=== PATIENT | female | born 1935 | race Caucasian/White ===

== ENCOUNTER → 2016-09-30 | Outpatient (CLI) | payer MEDICARE ==
[2016-02-27 08:00] VITALS: BP 114/61
[~2016-09-30] MED LIST: ASPI-482 PO; CELE200C PO; DULO60CA6 PO; EZET10TA18 PO; GABA-586 PO; ISOS30TA PO; LISI2.5T PO; METO-269 PO; NITR0.4T SL; PANT40GR PO; RANO500T2 PO; TEMA30CA PO; TRAM50TA PO
--- NOTE | 2016-09-30 16:17 | KCIC ---
Bilateral two-view tibia-fibula, bilateral 3 view ankle, bilateral 3 view foot HISTORY: Acute bilateral foot and ankle pain. Closed displaced fracture of left foot metatarsal with delayed healing. COMPARISON: None Two-view right tibia-fibula Bone demineralization. No evidence of acute or displaced fracture. The knee is barely visualized but there are some degenerative changes. Benign-appearing soft tissue calcifications. Left tibia fibula Partially visualized left knee replacement. Bony mineralization. No evidence of acute fracture. Benign-appearing soft tissue calcifications are identified. Three-view right ankle No evidence of acute fracture or dislocation. Joint spaces intact. No significant soft tissue abnormality. Bone demineralization. Three-view left ankle Bone demineralization. No evidence of acute fracture. No dislocation. Three-view right foot Bony mineralization. The medial cuneiform is not visualized. 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 The intermediate cuneiform is not visualized. The lateral cuneiform is small and irregular, and is indistinguishable from the third metatarsal base at the tarsometatarsal joint. There is a bony defect at the distal and lateral navicular bone. This defect has fairly well-defined margins without overly aggressive appearance. Proximal migration of the second metatarsal into this defect. No evidence of an acute appearing fracture. Small plantar calcaneal spur. There is plantar flexion of the talus. There is loss of the normal longitudinal arch of the foot. 3 view left foot Oblique fracture of the distal shaft of the fifth metatarsal. This is mildly comminuted. Age is indeterminate but there is only mild marginal callus and little if any bridging bone formation to indicate healing. There is also a fracture of the distal fourth metatarsal shaft with mild callus but not much bone bridging, could be of the same age. Old appearing fracture deformity of the third metatarsal appears healed. No evidence of dislocation. Small plantar calcaneal spur. IMPRESSION: 1. Distal shaft fractures of the left fourth and fifth metatarsals, age indeterminate, but there is no bony bridging to indicate healing. 2. Right foot pes planus. 3. Abnormal midfoot architecture of the right foot. The intermediate and medial cuneiforms are not visualized. There is a large appearing navicular bone which could be due to congenital fusion or lack of segmentation. The lateral cuneiform is small and irregular and difficult to separate from the third metatarsal. 4. 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 This could be posttraumatic due to old trauma, or could be due to chronic erosion such as from inflammatory arthropathy. Proximal migration of the second metatarsal into this defect. Electronically signed by: Arnulfo Doss MD (09/30/2016 4:14 PM)
== END | disposition home or self-care (01) ==
LOC: KCIC 14:08
PROVIDERS: ATTEND Physician Assistant Medical
DX: S92.902A Unspecified fracture of left foot, initial encounter for closed fracture (principal); M25.571 Pain in right ankle and joints of right foot; M25.572 Pain in left ankle and joints of left foot; M79.604 Pain in right leg; M79.605 Pain in left leg; X58.XXXA Exposure to other specified factors, initial encounter; Y93.89 Activity, other specified; Y92.89 Other specified places as the place of occurrence of the external cause; Y99.8 Other external cause status; M79.89 Other specified soft tissue disorders
CPT/HCPCS: 73590; 73610; 73630